=== PATIENT | female | born 1990 | race Caucasian/White ===

== ENCOUNTER 2018-07-02 15:30 | Outpatient (CLI) | payer BC ==
[~2018-07-02] VITALS: Ht 162.6 cm; Wt 91.2 kg
[2018-07-02] MEDS ORDERED: PREN1TAB60 PO (15:41)
[2018-07-02] MEDS ORDERED: SERT50TA PO (15:41)
[2018-07-02 15:42] VITALS: BP 118/76
[2018-07-02] MEDS ORDERED: BUTA1CAP30 PO (15:51)
[2018-07-02 16:40] LABS: MICROSCOPIC INDICATED
== END 2018-07-02 18:42 | disposition home or self-care (01) ==
LOC: LDOP 15:30
PROVIDERS: ATTEND Obstetrics & Gynecology
DX: O36.8130 Decreased fetal movements, third trimester, not applicable or unspecified (principal); Z3A.33 33 weeks gestation of pregnancy
CPT/HCPCS: 36415; 59025; 76819; 81001; 82731; 87086; 99201; G0463

== ENCOUNTER 2018-08-05 19:58 | Outpatient (CLI) | payer BC ==
[~2018-08-05 19:58] MED LIST: BUTA1CAP30 PO; PREN1TAB60 PO; SERT50TA PO
[2018-08-05 20:41] LABS: MICROSCOPIC AUTO
[2018-08-05 20:51] LABS: BASOPHILS # (AUTO) 0.02 x10^3/uL (0-0.1); BASOPHILS % (AUTO) 0 % (0-1); EOSINOPHILS # (AUTO) 0.05 x10^3/uL (0-0.4); EOSINOPHILS % (AUTO) 1 % (1-7); LYMPHOCYTES # (AUTO) 1.96 x10^3/uL (1-3.4); LYMPHOCYTES % (AUTO) 18 % (22-44); MD NO; MEAN CORPUSCULAR HEMOGLOBIN 32.3 pg (27.0-34.8); MEAN CORPUSCULAR HGB CONC 34.8 g/dL (32.4-35.8); MEAN CORPUSCULAR VOLUME 92.9 fL (80-100); MEAN PLATELET VOLUME 9.2 fL (7.4-10.4); MONOCYTES # (AUTO) 0.83 x10^3/uL (0.2-0.8); MONOCYTES % (AUTO) 8 % (2-9); NEUTROPHILS # (AUTO) 7.85 x10^3/uL (1.8-6.8); NEUTROPHILS % (AUTO) 73 % (42-75); PLATELET COUNT 190 x10^3/uL (130-400); RED BLOOD COUNT 3.96 x10^6/uL (3.82-5.3); RED CELL DISTRIBUTION WIDTH 13.8 % (9.6-15.2)
[2018-08-05 21:04] LABS: ALANINE AMINOTRANSFERASE 17 U/L (12-78); ALBUMIN 2.5 g/dL (3.4-5.0); ANION GAP 9 mmol/L (5-15); CALCIUM 8.3 mg/dL (8.5-10.1); CHLORIDE 111 mmol/L (98-107); CREATININE 0.77 mg/dL (0.55-1.02)
[2018-08-05 21:06] LABS: BILIRUBIN, DIRECT < 0.1 mg/dL (0.1-0.2)
[2018-08-05 21:07] LABS: ALKALINE PHOSPHATASE 165 U/L (45-117); BILIRUBIN,TOTAL 0.1 mg/dL (0.2-1.0); TOTAL PROTEIN 6.3 g/dL (6.4-8.2)
== END 2018-08-05 21:35 | disposition home or self-care (01) ==
LOC: LDOP 19:58
PROVIDERS: ATTEND Obstetrics & Gynecology
DX: O14.93 Unspecified pre-eclampsia, third trimester (principal); O99.343 Other mental disorders complicating pregnancy, third trimester; F32.9 Major depressive disorder, single episode, unspecified; Z3A.38 38 weeks gestation of pregnancy
CPT/HCPCS: 36415; 59025; 80053; 81001; 82248; 82570; 84156; 84550; 85025; 99211; G0463

== ENCOUNTER 2020-12-14 09:08 | Outpatient (CLI) | payer BC, OTHER ==
[~2020-12-14 09:08] MED LIST changes: +FERR325T23 PO; +IBUP-1222 PO; +OXYC5TAB98 PO
[2020-12-14] MEDS ORDERED: SERT100T PO (09:40)
[2020-12-14] MEDS ORDERED: LEVO1TAB25 PO (09:40)
[2020-12-14 10:29] LABS: BASOPHILS % (AUTO) 1 % (0-1); EOSINOPHILS % (AUTO) 1 % (1-7); LYMPHOCYTES % (AUTO) 21 % (22-44); MEAN CORPUSCULAR HEMOGLOBIN 32.4 pg (27.0-34.8); MEAN CORPUSCULAR HGB CONC 35.2 g/dL (32.4-35.8); MEAN PLATELET VOLUME 8.6 fL (7.4-10.4); MONOCYTES % (AUTO) 5 % (2-9); NEUTROPHILS % (AUTO) 73 % (42-75); PLATELET COUNT 300 x10^3/uL (130-400); RED BLOOD COUNT 4.77 x10^6/uL (3.82-5.3); RED CELL DISTRIBUTION WIDTH 12.6 % (9.6-15.2)
[2020-12-14 10:35] LABS: MD NO
== END 2020-12-14 23:59 | disposition home or self-care (01) ==
LOC: STAR 09:08
PROVIDERS: ATTEND Obstetrics & Gynecology
DX: Z01.812 Encounter for preprocedural laboratory examination (principal); Z20.822 Contact with and (suspected) exposure to COVID-19
CPT/HCPCS: 36415; 84703; 85025; U0003

== ENCOUNTER 2020-12-18 05:44 | Day surgery (SDC) | payer OTHER ==
[~2020-12-18] VITALS: Ht 162.6 cm; Wt 71.6 kg
[~2020-12-18 05:44] MED LIST changes: +LEVO1TAB25 PO; +SERT100T PO
[2020-12-18] MEDS ORDERED: CHLORHEXIDINE 15 ML UDC PO ONE (06:30)
[2020-12-18] MEDS ORDERED: LACTATED RINGERS 1,000 ML IV SCH (06:30)
[2020-12-18 06:31] VITALS: BP 111/75
[2020-12-18 06:33] VITALS: BP 111/75
[2020-12-18] MEDS ORDERED: ALPR0.5T7 PO (06:38)
[2020-12-18] MEDS ORDERED: CHLORHEXIDINE 15 ML UDC ONE (06:39)
[2020-12-18] MEDS ORDERED: MIDAZOLAM 1 MG/ML, 2ML ONE (07:03)
[2020-12-18] MEDS ORDERED: FENTANYL PF 250 MCG/5ML ONE (07:03)
[2020-12-18] MEDS ORDERED: BUPIVACAINE/PF 0.25% ONE (07:12)
[2020-12-18] MEDS ORDERED: SILVER NITRATE STICK TP ONE (07:12)
[2020-12-18] MEDS ORDERED: EPINEPHRINE 1 MG/ML, 1ML ONE (07:12)
[2020-12-18] MEDS ORDERED: HYDROmorphone 1 MG/ML, 1ML INJ IVPush PRN (07:30)
[2020-12-18] MEDS ORDERED: ACETAMINOPHEN 325 MG TABLET PO PRN (07:30)
[2020-12-18] MEDS ORDERED: FENTANYL PF 100 MCG/2ML IV PRN (07:30)
[2020-12-18] MEDS ORDERED: ONDANSETRON 2MG/ML, 2ML IVPush PRN (07:30)
[2020-12-18] MEDS ORDERED: OXYcodone 5 MG/5 ML ORAL.SOL UDC PO PRN (07:30)
[2020-12-18] MEDS ORDERED: hydrALAzine 20 MG/ML, 1ML IV PRN (07:30)
[2020-12-18] MEDS ORDERED: PROMETHAZINE 25 MG/ML, 1ML IVPush PRN (07:30)
[2020-12-18] MEDS ORDERED: LABETALOL 5MG/ML, 20ML IV PRN (07:30)
[2020-12-18] MEDS ORDERED: MEPERIDINE/PF 25MG/0.5ML IVPush PRN (07:30)
[2020-12-18] MEDS ORDERED: PROPOFOL 10 MG/ML, 20ML ONE (07:38)
[2020-12-18] MEDS ORDERED: KETOROLAC 30 MG/1 ML ONE (07:38)
[2020-12-18] MEDS ORDERED: ROCURONIUM 10MG/ML,5ML ONE (07:38)
[2020-12-18] MEDS ORDERED: CEFAZOLIN 1,000 MG ONE (07:40)
[2020-12-18] MEDS ORDERED: ACETAMINOPHEN 650 MG/20.3 ML UDC ONE (09:05)
== END 2020-12-18 09:53 | disposition home or self-care (01) ==
LOC: OUT 05:44
PROVIDERS: ATTEND Obstetrics & Gynecology
DX: Z30.2 Encounter for sterilization (principal); F32.9 Major depressive disorder, single episode, unspecified; F41.9 Anxiety disorder, unspecified; G43.909 Migraine, unspecified, not intractable, without status migrainosus; Z79.3 Long term (current) use of hormonal contraceptives; Z79.899 Other long term (current) drug therapy; Z90.49 Acquired absence of other specified parts of digestive tract
CPT/HCPCS: 36415; 58670; 86850; 86900; 88302; J0171; J0690; J1885; J2250; J2704; J3010; J7120